=== PATIENT | male | born 1975 | race Two or more races ===

== ENCOUNTER → 2017-03-13 | Outpatient (CLI) | payer SELFPAY ==
--- NOTE | 2017-03-13 14:26 | KCIC ---
CHEST PA LATERAL Clinical indications: Thoracic back pain. Left-sided chest pain. Comparison: None available. Findings: Decreased inspiration is seen bilaterally. There is platelike atelectasis or linear scarring of the right middle lobe. The left lung field is clear. No pleural effusion or pneumothorax is seen. The heart size, pulmonary vasculature, mediastinum and both lisandro are unremarkable. The osseous structures appear intact. Impression: Platelike atelectasis or linear scarring of the right middle lobe. Electronically signed by: Finn Khalil MD (03/13/2017 2:23 PM) [place] [id number]
== END | disposition home or self-care (01) ==
LOC: KCIC 13:49
DX: M54.6 Pain in thoracic spine (principal)
CPT/HCPCS: 71020

== ENCOUNTER → 2017-07-03 | Outpatient (CLI) | payer SELFPAY ==
[2017-07-03] MEDS: IOHEXOL 300 MG/ML 100ML VIAL. IV (09:42)
== END | disposition home or self-care (01) ==
LOC: KCIC CT 09:12
DX: K76.0 Fatty (change of) liver, not elsewhere classified (principal)
CPT/HCPCS: 71260; Q9967